=== PATIENT | male | born 1950 | race Caucasian/White ===

== ENCOUNTER 2020-10-19 09:05 | Outpatient (CLI) | payer MEDICARE, OTHER, SELFPAY ==
[2020-10-19 09:25] VITALS: BMI 27.6
--- NOTE | 2020-10-19 09:27 | ECG_ITS ---
[facility] Test Date: 2020-10-19 Pat Name: Braulio Jara Department: Room: Gender: Male Associate Brand Manager: : 1950 Requested By: Aliyah Canseco Order Number: [id number] Stephane MD: Aliyah Canseco M.D. Interpretive Statements NAME OF STUDY: LEXISCAN SESTAMIBI STRESS TEST INDICATION: Chest Pain PROCEDURE: At the baseline, the blood pressure was 125/75 mmHg, oxygen saturation 97% with a heart rate of 57 bpm. The electrocardiogram showed sinus bradycardia with short LA interval. Normal axis. Nonspecific ST depression and T wave inversion in lead III and aVF. The Lexiscan was infused over a period of 20 seconds. A total of 0.4 milligrams of Lexiscan was infused. The stress phase was continued for a total of 5 minutes. Heart rate at the end of the stress phase was 76 bpm, oxygen saturation 96% with a blood pressure of 129/71 mmHg. The EKG at the peak infusion revealed normal sinus rhythm with no significant ST-T wave changes. Sestamibi was injected 20 seconds after the Lexiscan infusion. Blood pressure at the end of the recovery phase was 124/72 mmHg, oxygen saturation 95% with a heart rate of 77 beats per minute. Isolated PVC noted in recovery. CONCLUSION: 1. No significant EKG changes with the LexiScan infusion. 2. No LexiScan induced chest pain or cardiac arrhythmia. 3. Normal blood pressure and heart rate response. 4. Sestamibi/sestamibi perfusion scan pending; see separate report. Electronically Signed On 10-20-2020 18:24:51 CDT by Aliyah Canseco M.D. [id number]
--- NOTE | 2020-10-19 09:28 | NMCV_ITS ---
NM sergey perf SPECT r/s* [id number] Braulio Jara Age: 69 Gender: M : 1950 Exam Date: 10/19/2020 09:28 Ordering Phys: Aliyah Canseco MD ([email or web address]) Technologist: KAUSHAL Arroyo Exam Location: [facility] Indications: CHEST PAIN STRESS TEST Please see separate stress test report in [facility] for full findings IMAGE PROTOCOL Rest/Stress 1 Lexiscan Day Radiopharmaceutical Dose (mCi) Administration Site Administered by Rest: Tc-99m 10.7 IV KAUSHAL Roque Stress:Tc-99m 32.5 IV KAUSHAL Roque Rest: 19-Oct-2020 60 Discovery 630 Stress: 19-Oct-2020 30 Discovery 630 0.4mg Lexiscan. Images obtained in supine and prone position. SPECT RESULTS Technical Quality: Excellent Raw Data Analysis: Normal Image Corrections: No attenuation or motion correction applied Summed Stress Score: 7 Summed Rest Score: 1 Summed Difference Score: 6 PERFUSION FINDINGS Small sized perfusion abnormality of moderate severity of mid to apical anterior and apical lateral kraus on rest images with reversibility noted in stress images. FUNCTIONAL RESULTS (calculated via Gated SPECT) Stress Image LV EF (%): 53 Stress EDV (mL):120 TID: 1.13 Stress ESV (mL):57 FUNCTIONAL FINDINGS: The left ventricle is normal in size. Transient Ischemia Dilatation of 1.1. There is normal left ventricular systolic function. The left ventricular ejection fraction is normal with a value of 53%. There is reduced left ventricular wall thickening in mid to apical anterior wall. IMPRESSIONS 1. Small sized partially reversible perfusion abnormality of moderate severity of mid to apical anterior and apical lateral kraus. 2. This is suggestive of myocardial infarction in left anterior descending artery territory with mild per-infarct ischemia. 3. The left ventricular ejection fraction is normal with a value of 53%. 4. There is reduced left ventricular wall thickening in mid to apical anterior wall. 5. EKG portion of the study will be reported separately. Aliyah Canseco MD (Electronically Signed) Final Date: 23 October 2020 12:02 S
[2020-10-19] MEDS: regadenoson 0.4 Mg/5 ml Syringe IVP (11:08)
[2020-10-19 11:28] VITALS: BP 118/75; PULSE 80
== END 2020-10-19 09:06 | disposition home or self-care (01) ==
LOC: CDL 09:07
PROVIDERS: PCP Student in an Organized Health Care Education/Training Program; Visit Provider Internal Medicine Cardiovascular Disease
DX: R07.9 Chest pain, unspecified (principal)
CPT/HCPCS: 78452; 93017; A9500; J2785

== ENCOUNTER → 2022-05-20 14:54 | Outpatient (BNVA) | payer MEDICARE, OTHER, SELFPAY | PROVIDERS: PCP Registered Nurse; Visit Provider Internal Medicine Cardiovascular Disease | DX: R07.9 Chest pain, unspecified (principal); I25.810 Atherosclerosis of coronary artery bypass graft(s) without angina pectoris; I10 Essential (primary) hypertension; E78.2 Mixed hyperlipidemia; E11.9 Type 2 diabetes mellitus without complications; Z79.84 Long term (current) use of oral hypoglycemic drugs; Z95.1 Presence of aortocoronary bypass graft; Z87.891 Personal history of nicotine dependence | CPT/HCPCS: 99214 ==

== ENCOUNTER → 2023-02-24 12:34 | Outpatient (BNVA) | payer MEDICARE, OTHER, SELFPAY | PROVIDERS: PCP Registered Nurse; Visit Provider Internal Medicine Cardiovascular Disease | DX: I25.10 Atherosclerotic heart disease of native coronary artery without angina pectoris (principal); E78.2 Mixed hyperlipidemia; R07.9 Chest pain, unspecified; I25.810 Atherosclerosis of coronary artery bypass graft(s) without angina pectoris; I10 Essential (primary) hypertension; E11.9 Type 2 diabetes mellitus without complications; Z87.891 Personal history of nicotine dependence; R94.31 Abnormal electrocardiogram [ECG] [EKG] | CPT/HCPCS: 93005; 99214 ==

== ENCOUNTER 2023-03-11 08:21 | Outpatient (CLI) | payer MEDICARE, OTHER, SELFPAY ==
[2023-03-11 09:02] LABS: Alanine Aminotransferase 33 U/L (0-41); Albumin Level 4.4 g/dL (3.5-5.2); Alkaline Phosphatase 49 U/L (40-130); Anion Gap 13.8 (5-19); Aspartate Amino Transferase 36 U/L (0-40); Blood Urea Nitrogen 16 mg/dL (8-23); Calcium 9.4 mg/dL (8.5-10.5); Carbon Dioxide 28 mmol/L (22-29); Chloride 100 mmol/L (98-107); Chol HDL Ratio 6.97 mg/dL (1.0-5.00); Cholesterol 237 mg/dL (0-200); Globulin 2.7 g/dL (1.3-4.6); Glucose 131 mg/dL (65-115); HDL Cholesterol 34 mg/dL (60-100); LDL Cholesterol Direct 118 mg/dL (0-100); Osmolality Calculated 289 mOsm/kg (285-295); Potassium 3.8 mmol/L (3.5-5.1); Sodium 138 mmol/L (136-145); Total Bilirubin 0.4 mg/dL (0.15-1.2); Total Protein 7.1 g/dL (6.6-8.7); Triglycerides 418 mg/dL (0-150)
== END 2023-03-11 08:22 | disposition home or self-care (01) ==
LOC: LAB 08:26
PROVIDERS: PCP Registered Nurse; Visit Provider Internal Medicine Cardiovascular Disease
DX: I25.10 Atherosclerotic heart disease of native coronary artery without angina pectoris (principal); E78.5 Hyperlipidemia, unspecified; E78.2 Mixed hyperlipidemia
CPT/HCPCS: 36415; 80053; 80061; 83721

== ENCOUNTER → 2023-11-25 15:41 | Outpatient (BNVA) | payer MEDICARE, OTHER, SELFPAY | PROVIDERS: PCP Registered Nurse; Visit Provider Nurse Practitioner Family | DX: I25.810 Atherosclerosis of coronary artery bypass graft(s) without angina pectoris (principal); I49.9 Cardiac arrhythmia, unspecified; R68.89 Other general symptoms and signs; I10 Essential (primary) hypertension | CPT/HCPCS: 93005; 99214 ==

== ENCOUNTER → 2023-12-03 06:15 | Outpatient (CLI) | payer MEDICARE, OTHER, SELFPAY ==
--- NOTE | 2023-12-03 06:30 | USCV_ITS ---
Estefani Braulio Age: 73 Gender: M : 1950 Exam Date: 12/03/2023 06:36 Ordering Phys: Orquidea Todd Technologist: JASSON Exam Location: [facility] [place] Indication: IRREGULAR HEART RATE BP: 124 / 78 HR: 68 Rhythm: Sinus Technical Quality: Adequate MEASUREMENTS (Male / Female) Normal Values 2D ECHO LV Diastolic Diameter PLAX 5.2 cm 4.2 - 5.9 / 3.9 - 5.3 cm IVS Diastolic Thickness 1.2 cm 0.6 - 1.0 / 0.6 - 0.9 cm IVS Systolic Thickness 1.7 cm LVPW Diastolic Thickness 1.7 cm 0.6 - 1.0 / 0.6 - 0.9 cm LVPW Systolic Thickness 2.3 cm LVOT Diameter 2.0 cm LV Ejection Fraction 2D Teich 62.1 % LV Ejection Fraction MOD 4C 48.6 % LV Ejection Fraction MOD 2C 55.6 % LV Ejection Fraction 2C AL 60.8 % LA Diameter 4.0 cm RA Systolic Volume 4C AL 40.0 ml RA Systolic Volume 4C MOD 38.1 ml LA Sys Volume AL 52.5 cm cubed LA Sys Volume Index AL 22.9 cm cubed/m squared Aorta at Sinotubular Diameter 2.8 cm IVC Diameter 1.9 cm M-MODE LA Ao Ratio MM 0.8 AV Cusp Separation MM 1.2 cm DOPPLER AV Peak Velocity 111.0 cm/s LVOT Peak Velocity 72.0 cm/s AV Area Cont Eq vti 2.3 cm squared AV Area Cont Eq pk 2.1 cm squared MV Peak Velocity 82.0 cm/s MV Area PHT 2.1 cm squared Mitral E to A Ratio 0.7 TR Peak Velocity 155.0 cm/s TR Peak Gradient 9.6 mmHg TR Mean Velocity 128.0 cm/s TR Mean Gradient 6.9 mmHg TR Velocity Time Integral 42.3 cm TV Peak E Velocity 31.0 cm/s Right Atrial Pressure 3.0 mmHg Pulmonary Artery Systolic Pressu 12.6 mmHg PV Peak Velocity 72.0 cm/s FINDINGS Left Ventricle Normal LV size with a slightly diminished ejection fraction of 49%. Moderate diffuse hypokinesia of the septum.Grade I/IV diastolic dysfunction (abnormal relaxation filling pattern), normal to mildly elevated filling pressures. Right Ventricle The right ventricle is normal in size and function. Right Atrium The right atrium is normal in size. Left Atrium The left atrium is normal in size. Mitral Valve Mild mitral annular calcification. Aortic Valve Thickened aortic valve. Tricuspid Valve Trace tricuspid valve regurgitation. Pulmonic Valve Pulmonic valve not well visualized. Pericardium Normal pericardium without effusion. Aorta Normal ascending aorta dimension. IVC The inferior vena cava appears normal. CONCLUSIONS Normal LV size with a slightly diminished ejection fraction of 49%. Moderate diffuse hypokinesia of the septum.Grade I/IV diastolic dysfunction (abnormal relaxation filling pattern), normal to mildly elevated filling pressures. Thickened aortic valve. Mild mitral annular calcification. Trace tricuspid valve regurgitation. Estimated pulmonary artery peak systolic pressure, possibly within normal limits There is no pericardial effusion. Compared to the study from 03/28/2017, there is significant improvement in the LV ejection fraction (from 40% to 49%) Dr Joseluis Bacon MD [facility] (Electronically Signed) Final Date: 04 December 2023 22:04 S
== END | disposition home or self-care (01) ==
LOC: RAD 06:14
PROVIDERS: PCP Registered Nurse; Visit Provider Nurse Practitioner Family
DX: I25.810 Atherosclerosis of coronary artery bypass graft(s) without angina pectoris (principal); I49.9 Cardiac arrhythmia, unspecified; R68.89 Other general symptoms and signs; I34.81 Nonrheumatic mitral (valve) annulus calcification; I35.8 Other nonrheumatic aortic valve disorders; I36.1 Nonrheumatic tricuspid (valve) insufficiency
CPT/HCPCS: 93306

== ENCOUNTER 2023-12-28 07:07 | Outpatient (CLI) | payer MEDICARE, OTHER, SELFPAY ==
--- NOTE | 2023-12-28 | ECG_ITS ---
[facility] Test Date: 2023-12-28 Pat Name: Braulio Jara Department: Room: Gender: Male Investigation Clerk: : 1950 Requested By: Orquidea Todd Order Number: [id number] Reading MD: Interpretive Statements Lung unchanged pre/post procedure; Intraprocedure shortess of breath; Symptoms resoled by discharge [id number]
--- NOTE | 2023-12-28 07:15 | NMCV_ITS ---
NM sergey perf SPECT r/s* [id number] Braulio Jara Age: 73 Gender: M : 1950 Exam Date: 12/28/2023 08:05 Ordering Phys: Orquidea Todd Technologist: KAUSHAL Roque Exam Location: [facility] Indications: Fatigue, hx of CABG STRESS TEST Please see separate stress test report in [facility] for full findings IMAGE PROTOCOL Rest/Stress 1 Lexiscan Day Radiopharmaceutical Dose (mCi) Administration Site Administered by Rest: Tc-99m 10.8 IV KAUSHAL Roque Sestamibi Stress:Tc-99m 32.9 IV KAUSHAL Roque Sestamibi Rest: 28-Dec-2023 60 Discovery 630 Stress: 28-Dec-2023 45 Discovery 630 0.4mg Lexiscan. Images obtained in supine and prone position. SPECT RESULTS Technical Quality: Good Raw Data Analysis: Normal Image Corrections: No attenuation or motion correction applied Summed Stress Score: 5 Summed Rest Score: 5 Summed Difference Score: 2 PERFUSION FINDINGS Medium sized areas of mostly fixed perfusion defect is seen in apical, apical anterior and apical lateral kraus. This is consistent with medium sized areas of prior infarct with minimal thomas-infarct ischemia in these territories. FUNCTIONAL RESULTS (calculated via Gated SPECT) Stress Image LV EF (%): 37 Stress EDV (mL):166 TID: 1.04 Stress ESV (mL):105 FUNCTIONAL FINDINGS: LV systolic function is moderately reduced with EF of 37%. IMPRESSIONS 1. Abnormal myocardial perfusion imaging with medium sized areas of prior infarct with minimal thomas-infarct ischemia seen in apical, apical anterior and apical lateral kraus. 2. LV systolic function is moderately reduced with EF of 37%. Rafita Prajapati MD (Electronically Signed) Final Date: 29 December 2023 17:46 S
[2023-12-28 07:26] VITALS: BMI 28.0
[2023-12-28] MEDS: regadenoson 0.4 Mg/5 ml Syringe IVP (08:46)
[2023-12-28 09:05] VITALS: BP 123/78; PULSE 87
== END 2023-12-28 07:08 | disposition home or self-care (01) ==
LOC: CDL 07:07
PROVIDERS: PCP Registered Nurse; Visit Provider Nurse Practitioner Family
DX: I25.810 Atherosclerosis of coronary artery bypass graft(s) without angina pectoris (principal); I49.9 Cardiac arrhythmia, unspecified; R94.39 Abnormal result of other cardiovascular function study
CPT/HCPCS: 36415; 78452; 93017; 96374; A9500; J2785

== ENCOUNTER 2024-01-11 10:43 | Outpatient (CLI) | payer MEDICARE, OTHER, SELFPAY ==
[2024-01-11 11:19] LABS: Basophils # 0.1 10^3/uL (0.0-0.1); Basophils % 0.8 %; Eosinophils # 0.4 10^3/uL (0.0-0.8); Eosinophils % 5.2 %; Hematocrit 41.3 % (37-53); Lymphocytes # 1.2 10^3/uL (0.8-4.8); Lymphocytes % 16.1 %; Mean Corpuscular HGB Conc 34.4 g/dL (30-55); Mean Corpuscular Hemoglobin 31.6 pg (27-33); Mean Corpuscular Volume 91.8 fl (82-101); Mean Platelet Volume 9.3 fL (7.4-10.4); Monocytes # 0.7 10^3/uL (0.2-0.9); Monocytes % 9.1 %; Neutrophils # 5.09 10^3/uL (1.8-7.7); Neutrophils % 68.5 %; Nucleated Red Blood Cells % 0 %; Platelet Count 209 10^3/cmm (157-399); Red Cell Distribution Width 13.1 % (12.1-15.1); White Blood Count 7.44 10^3/uL (3.29-11.43)
[2024-01-11 11:33] LABS: INR 0.98 (0.83-1.21); Prothrombin Time (Patient) 13.3 Seconds (12.0-15.1)
[2024-01-11 11:48] LABS: Anion Gap 15.1 (5-19); Blood Urea Nitrogen 12 mg/dL (8-23); Carbon Dioxide 27 mmol/L (22-29); Chloride 101 mmol/L (98-107); Glucose 159 mg/dL (65-115); NT Pro B Type Natriuretic Pept 141 pg/mL (0-125); Osmolality Calculated 291 mOsm/kg (285-295); Potassium 4.1 mmol/L (3.5-5.1); Sodium 139 mmol/L (136-145)
== END 2024-01-11 10:44 | disposition home or self-care (01) ==
LOC: LAB 10:45
PROVIDERS: Nurse Practitioner Family; PCP Registered Nurse; Visit Provider Internal Medicine Cardiovascular Disease
DX: I10 Essential (primary) hypertension (principal); I25.810 Atherosclerosis of coronary artery bypass graft(s) without angina pectoris
CPT/HCPCS: 36415; 80048; 83880; 85025; 85610; 86850; 86900

== ENCOUNTER 2024-01-13 05:59 | Outpatient (CLI) | payer MEDICARE, OTHER, SELFPAY ==
[2024-01-12 08:32] VITALS: BP 117/71; PULSE 67; RESP 14; O2SAT 95
[2024-01-13] VITALS (7 sets, daily range): BP systolic 117–152; BP diastolic 71–87; PULSE 67–78; RESP 14–16; TEMP 36.7–36.9; O2SAT 95–97; BMI 28.0
--- NOTE | 2024-01-13 06:00 | XACV_ITS ---
Exam Room: 2 Ht: 188 cm Wt: 99 kg BSA: 2.29 m2 Gender: Male : 1950 Any Known Allergies: No known allergies Exam Priority: Routine Procedure(s): Procedure Description: Diagnostic procedure Procedure Description: Left Heart Catheterization Procedure Description: Left ventriculography Procedure Description: Venous Graft Catheterization Procedure Description: COLBERT Graft Catheterization Procedure Description: Coronary Angiography Jordi HER; Diagnostic Cath Status: Elective Diagnostic Findings * Left main is a medium caliber vessel with mild diffuse disease. * The left hand descending artery appears to be flush occluded proximally. * The left circumflex artery was found to have mild disease proximally. It gives of a high OM branch of relatively small caliber with a moderate to severe diffuse disease. The second obtuse marginal artery appears to be totally occluded. The AV groove branch was found to have mild diffuse disease. * The right coronary artery was found to have moderate to severe diffuse irregular lesions in the proximal to mid segment. The PDA branch was found to be totally occluded. The PLV branch was found to have severe diffuse disease in the mid to distal segment.. * The venous graft to the second obtuse marginal artery was found to be patent with no significant stenotic lesions. * The venous graft to the diagonal branch was found to be patent with no significant stenotic lesions. * The venous graft to the PDA was found to be patent with no significant lesions. * The venous graft to the PLV branch was found to be patent with no significant lesions. Conclusions 1. 73-year-old white male with history of 5 vessel coronary bypass surgery, percent of increasing shortness of breath with exertion and easy fatigability. Abnormal Myocardial perfusion imaging. Underwent a left heart catheterization with left and right coronary angiogram and graft angiogram today. The findings are as follows. 2. 1. Mild disease in the left main.2. 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 Moderate to severe diffuse disease in the relatively small caliber first obtuse marginal branch. Total occlusion of the second obtuse marginal artery.4. Moderate to severe diffuse disease in the proximal to mid RCA. Total occlusion of the PDA branch. Severe diffuse disease in the proximal to mid segments of the PLV branch of the right coronary artery.5. Patent COLBERT to the LAD, venous grafts to the diagonal, obtuse marginal, PLV branch of the right coronary artery and the PDA o branch f the right coronary artery6. LV ejection fraction of 45 to 50%. LVEDP of 8 mmHg.. Diagnostic RX Recommendation: medical therapy and/or counseling LV EDP: 8 mmHg Ventriculography Ejection Fraction: 45.0 % Left Ventriculography Findings: * The LV gram was performed in the LEBLANC projection. The LV gram was of suboptimal quality because of the poor filling. LV cavity appears to be of normal size. LVEDP was 8 mmHg. The LV ejection fraction was around 45 to 50%. Pressures Phase:Rest AO : 108 / 78 ( 94 ) @ 8:40:00 AM 92 / 51 ( 77 ) @ 8:42:00 AM 93 / 69 ( 82 ) @ 8:44:00 AM 115 / 58 ( 84 ) @ 9:15:00 AM 114 / 56 ( 81 ) @ 9:15:00 AM LV : 122 / -13 / 9 @ 9:13:00 AM 111 / -9 / 8 @ 9:15:00 AM 112 / -9 / 8 @ 9:15:00 AM Valves Phase:DefaultPhase AV : 0.0 @ 8:27:39 AM AV Mean Gradient: 0.0 @ 8:27:39 AM Clinical Evaluation EBL: 5mL-10mL Procedural Details Procedure Consent Obtained. Current Diagnosis : Chest Pain. Pre-Procedure Time Out. Identified patient by full name and date of as verbalized by the patient/guarantor. Does the consent match the physician's order: Yes. Accurate & Complete Informed Consent: Yes. Inpatient/Outpatient History & Physical on Chart: Yes. If H&P is completed, is and addenduem needed: No; If yes, is the addendum complete: N/A. Visualize and Verify Site with Patient/Guarantor: N/A. Relevant Radiology Images available: Yes. Pre-op teaching completed and patient verbalized understanding. The risks, benefits, and alternatives of sedation and/or procedure were discussed by physician. The patient agrees to continue. Procedure started. Physician arrived. [facility] Clinical Fraility Score: 3: Managing Well. Teacher Specialist Indications: Other. Chest Pain Symptom Assessment: Typical Angina Symptoms. Correct patient, site and procedure confirmed by cath team. Current diagnosis: Chest Pain. PERRLA. Strong, equal hand chief lending officer bilaterally. Lungs clear x 5 lobes. IV Site on Arrival: 20 gauge in the left anticubital. IV Fluids: 0.9% NaCl at KVO. 0 mL infused prior to foundry laborer coreroom. Pre Procedural Pulses: right dorsalis pedis was 3+. Pre Procedural Pulses: left dorsalis pedis was Doppled. Pre Procedural Pulses: bilateral posterior tibial was Doppled. Pre Procedural Pulses: bilateral radial was 3+. Oxygen started at 2liters/min via nasal canula. bilateral groins was prepped with chloroprep then draped in the usual sterile fashion. Baseline sample Acquired. HR: 74 BPM. Physician scrubbed in. Immediate Pre-Procedure Time Out. Correct Patient: Yes; Correct Procedure: Yes; Correct Site: Yes; Correct Patient Position: Yes; Correct Supplies: Yes; Dried Flammable Prep: Yes; Blood Products Available: N/A;. Lidocaine 1% infiltrated to the right groin. Arterial access obtained with micropuncture set. A 5 gibraltarian JL4 catheter in over wire. Catheter removed over the standard wire. A 5 gibraltarian JL4.5 catheter in over wire. Multiple views taken of left coronary artery. Catheter removed over the standard wire. A 5 gibraltarian JR4 catheter in over wire. Multiple views taken of right coronary artery. SVG's to OM visualized and patent. COLBERT to LAD visualized. Catheter removed over the exchange wire. A 5 gibraltarian IM catheter in over wire. COLBERT to LAD visualized. Catheter removed over the exchange wire. A 5 gibraltarian LCB catheter in over wire. SVG's to Diaganol visualized and patent. Catheter removed over the standard wire. A 5 gibraltarian RCB catheter in over wire. SVG's to PLV visualized and patent. SVG's to PDA visualized and patent. Catheter removed over the standard wire. Dr. Prajapati called to review films. A 5 gibraltarian Angled Pig catheter in over wire. EDP Sample taken: LV 122/-14,9; HR: 72 BPM; SpO2: 100%. LV gram performed in LEBLANC @ 10 mL/second for a total of 30 mL. EDP Sample taken: LV 111/-10,8; HR: 70 BPM; SpO2: 100%. Pullback taken: LV 112/-10,8; AO 115/58(84); Mean: 0mmHg, Peak to Peak: 0mmHg, SEP: 7sec/min; HR: 71 BPM; SpO2: 100%. Catheter removed over the standard wire. Physician scrubbed out. Dr. Prajapait arrived. Physician review of cine films. Vital chart was stopped. A Suture was successful obtaining hemostatsis at the Right Femoral artery insertion site. Sheath(s) sutured into position with 2-0 silk and sterile 4x4's and Op-site applied over the site. No oozing or signs and symptoms of hematoma noted. Arterial sheath flushed and connected to tranducer and pressure bag with heparinized saline. Post Procedure: Pulses reassessed and unchanged. PERRLA. Strong, equal hand chief lending officer bilaterally. No VTE prophylaxis required. Medication's Wasted: Lidocaine 1% = 10 mL. Medication's Wasted: Heparin = 4500 units. Medication's Wasted: Other = Fentanyl 25mcg Versed 1 mg. Total IV fluids: 100 mL. Complications: None. Estimated blood loss: 5mL-10mL. Responsiveness - Normal response to verbal stimuli; alert and oriented, PERRLA. Airway - Unaffected, no intervention required; spontaneous ventilation. Circulation: W/N/L, pulses unchanged. Nausea/Vomiting: No. Procedure completed. Patient transferred by bed to ICU. Access Site Site: Right Femoral artery Sheath Size: 6 Fr Hemostasis Method: Suture Hemostasis Success: Successful Procedure Medications Start: 7:22 AM Stop: 7:22 AM Medication: Versed Amount: 1 mg Route: I.V. Start: 7:23 AM Stop: 7:23 AM Medication: Fentanyl Amount: 50 mcg Route: I.V. Start: 7:35 AM Stop: 7:35 AM Medication: Versed Amount: 1 mg Route: I.V. Start: 7:39 AM Stop: 7:39 AM Medication: Heparin Amount: 1500 units Route: I.V. Start: 8:00 AM Stop: 8:00 AM Medication: Fentanyl Amount: 25 mcg Route: I.V. Start: 8:12 AM Stop: 8:12 AM Medication: Versed Amount: 1 mg Route: I.V. I, the attending physician, have reviewed and verified all procedure medications. Yes, all medications given per verbal order History/Risk Factors Hypertension: Yes Dyslipidemia: Yes Peripheral Arterial Disease (PAD): No Myocardial Infarction (VT): No Obesity: No Renal Disease: No Tobacco Use: Former Prior Interventions PCI: No CABG: Yes Valve Surgery: No Report Signatures Finalized by Dr Joseluis Bacon MD [facility] on 01/14/2024 09:27 AM
[2024-01-13] MEDS: diphenhydrAMINE 50 mg Capsule PO (06:20)
[2024-01-13 06:32] LABS: Glucose Point of Care 236 mg/dL (70-110)
--- NOTE | 2024-01-13 07:18 | PM.HP ---
Providers/Chief Complaint Admitting Physician: Dr. ESTEFANIA Bacon Primary Care Provider: HIREN Downs Chief Complaint: I25.810, R94.39 History of Present Illness Braulio Jara is a 73 year old male with a history of coronary disease, status post 5 vessel coronary bypass surgery, is presenting with complaints of shortness of breath, easy fatigability. He had a myocardial perfusion imaging which was found to be slightly abnormal. Because of the ongoing worsening of symptoms, in order to further evaluate the coronary status as well as the graft status, a cardiac catheterization was recommended. Patient is known to have high blood pressure, dyslipidemia, type 2 diabetes. Review of Systems Narrative: CONSTITUTIONAL: No fever chills weight loss or gain or night sweats. Easy fatigability and dyspnea on exertion HEENT: Normocephalic, atraumatic. RESPIRATORY: No cough, sputum, hemoptysis or wheezing. CARDIOVASCULAR: No shortness of breath, chest pain, PND, orthopnea, lower extremity edema, presyncope or syncope. GI: no nausea vomiting diarrhea. [employer]: No numbness, tingling, weakness or loss of function in any part of the body. MUSCULOSKELETAL: No knee or joint pain or rashes. Medications/Allergies Home Medications Medication Instructions Recorded Confirmed Last Taken Type aspirin 81 mg tablet,delayed 81 mg PO DAILY 09/21/19 01/12/24 01/13/24 05:15 History release (Aspir-) cholecalciferol (vitamin D3) 25 50 mcg PO DAILY 09/21/19 01/12/24 01/13/24 05:15 History mcg (1,000 unit) capsule multivitamin,lm-ihtp-fkxyckzu 1 tab PO DAILY 09/21/19 01/12/24 01/13/24 05:15 History (Complete Multivitamin tablet) esomeprazole magnesium 40 mg 40 mg PO DAILY 09/17/20 01/12/24 01/13/24 05:15 History capsule,delayed release (Nexium) lactobacillus combination no.9 4 4,000 mmu cells PO DAILY 09/17/20 01/12/24 01/13/24 05:15 History billion cell capsule (Adult 50 Plus Probiotic) metformin 1,000 mg tablet 1,000 mg PO BID 09/17/20 01/12/24 01/12/24 History nitroglycerin 0.4 mg sublingual 0.4 mg sublingual Q5M PRN chest 09/17/20 01/12/24 Unknown Rx tablet pain #30 tabs vit A 300 mcg-C 200 mg-E 27 1 tab PO DAILY 09/17/20 01/12/24 01/13/24 05:15 History mg-lutein 2 mg and minerals tablet (Vision Formula (with lutein)) metoprolol tartrate 50 mg tablet 25 mg (1/2 x 50 mg) PO BID #30 tabs 10/08/21 01/12/24 01/13/24 05:15 Rx hydrochlorothiazide 25 mg tablet 50 mg (2 x 25 mg) PO DAILY #60 tabs 04/03/22 01/12/24 01/13/24 05:15 Rx lisinopril 10 mg tablet 10 mg PO BID #180 tabs 09/19/22 01/12/24 01/13/24 05:15 Rx atorvastatin 80 mg tablet 80 mg PO DAILY #90 tabs 09/22/22 01/12/24 01/13/24 05:15 Rx tadalafil 5 mg tablet 5 mg PO DAILY 02/24/23 01/12/24 Unknown History gabapentin 300 mg capsule 300 mg PO TID 11/25/23 01/12/24 01/13/24 05:15 History tamsulosin 0.4 mg capsule 0.4 mg PO DAILY 11/25/23 01/12/24 01/13/24 05:15 History alirocumab 75 mg/mL subcutaneous 75 mg SUBCUT Q14D #75 mL 12/16/23 01/12/24 Unknown Rx pen injector (Praluent Pen) coenzyme Q10 100 mg capsule 200 mg PO DAILY 01/12/24 01/12/24 01/13/24 05:15 History (CoQ-10) dulaglutide 1.5 mg/0.5 mL 0.5 mg SUBCUT DIRECTED 01/12/24 01/12/24 01/12/24 History subcutaneous pen injector (Trulicity) omega-3 fatty acids 2,000 mg PO DAILY 01/12/24 01/12/24 01/13/24 05:15 History Allergies Allergy/AdvReac Type Severity Reaction Status Date / Time No Known Allergies Allergy Verified 01/13/24 06:47 PFSH Acute PFSH: Medical History Diabetes mellitus Postoperative atrial fibrillation Ulnar neuropathy at elbow of right upper extremity CAD (coronary atherosclerotic disease) Ulnar neuropathy Hyperlipidemia HTN (hypertension) Surgical History Hx of CABG Family History Other CAD (coronary artery disease) Diabetes Emphysema of lung Hypertension Social History Smoking and tobacco/nicotine status: former use of tobacco/nicotine Quit status (tobacco/nicotine): has quit using Year quit tobacco: 1984 Alcohol intake: current Alcohol intake frequency: holidays/special occasions only Substance/Drug Use: never Vitals/I&O/Wt Last Vital Signs Temp 98.5 F 01/13/24 06:40 Pulse 78 01/13/24 06:40 Resp 16 01/13/24 06:40 BP 152/87 01/13/24 06:40 O2 Del Method Room Air 01/13/24 06:40 Weight last 48 hrs Weight 218 lb Physical Exam Narrative: GENERAL: The patient is alert and oriented times three. Not in any acute distress. [] HEENT: No significant pallor, icterus or lymphadenopathy.Oral cavity: There are no mucous membrane lesions. NECK: Trachea appears to be central. No masses noted. No JVD or thyromegaly appreciated. RESPIRATORY: Chest is symmetrical. No intercostals muscle retraction or any accessory muscle activation. There is no chest wall tenderness. Breath sounds are heard bilaterally. No rales or rhonchi heard. No evidence of any consolidation. [] BREASTS: Deferred. HEART: The heart sounds are normal. No S3 or S4. No significant murmurs. No pericardial rub ABDOMEN: No vessel pulsations or distention. No tenderness. No organomegaly appreciated. Bowel sounds are normally heard. : Deferred. RECTAL: Deferred. LYMPHATIC: No lymphadenopathy noted in the neck. EXTREMITIES: No edema or cyanosis. No clubbing. MUSCULOSKELETAL: No acute joint deformities or swelling SKIN: There are no significant rashes or ecchymosis NEUROPSYCHIATRIC: The patient is alert and oriented x3. Appears to be in a good mood. No tremors or rigidity noted. A&P Assessment and plan (1) Atherosclerotic heart disease of [place] coronary artery with other forms of angina pectoris: Patient had a 5 vessel bypass surgery in 2017, COLBERT to the LAD, SVGs to diagonal, obtuse marginal, PDA and PLV (2) HTN (hypertension): Currently stable Qualifiers: Hypertension type: primary hypertension Qualified Code(s): I10 - Essential (primary) hypertension (3) Hyperlipidemia: Will continue on the current medications Qualifiers: Hyperlipidemia type: mixed hyperlipidemia Qualified Code(s): E78.2 - Mixed hyperlipidemia (4) Diabetes mellitus: Qualifiers: Diabetes mellitus type: type 2 Diabetes mellitus complication status: without complication Diabetes mellitus long-term insulin use: without long line teamster use Qualified Code(s): E11.9 - Type 2 diabetes mellitus without complications Plan In view of the patient's ongoing symptoms, it would be appropriate to go ahead with an angiogram to decide on the coronary status as well as the graft status. The risk of bleeding, hematoma, vascular injury, myocardial infarction, myocardial perforation, malignant cardiac arrhythmias ,CVA, renal failure and other concomitant complications were explained in detail. Patient understood this well and consented to proceed. He also understands that if he needed any surgical intervention, he may need to be transferred to another facility. Attestations Medical Necessity Statement*: Patient may require overnight stay Coding Level of Care Code 64619 Diagnoses Atherosclerotic heart disease of [place] coronary artery with other forms of angina pectoris I25.118 Primary hypertension I10 Hypertension type: primary hypertension Mixed hyperlipidemia E78.2 Hyperlipidemia type: mixed hyperlipidemia Type 2 diabetes mellitus without complication, without long-term current use of insulin E11.9 Diabetes mellitus type: type 2 Diabetes mellitus complication status: without complication Diabetes mellitus long line teamster insulin use: without long-term use
--- NOTE | 2024-01-13 07:28 | W.PM.OPSUD ---
Surgery/Procedure H&P Update DATE OF PROCEDURE: January 13, 2024 DATE H&P PERFORMED: 01/13/24 H&P UPDATE INFORMATION: I have reviewed H&P completed within last 30 days, I have examined patient prior to procedure and No changes to prior documentation PREOP DIAGNOSIS: ASHD PRIMARY INDICATION FOR PROCEDURE: Shortness of breath, easy fatigability and abnormal Myocardial perfusion imaging. Cardiomyopathy. PLANNED PROCEDURE: Operation Date: 01/13/24 07:00 Proposed Procedures p Cardiac Catheterization - [facility](Left) - Joseluis Bacon MD PATIENT REASSESSED PRIOR TO SEDATION, WITH NO CHANGE NOTED: Yes PHYSICAL EXAM: alert, oriented x 3, clear to auscultation bilaterally and regular rate & rhythm AIRWAY EVAL/ANESTHESIA PLAN: normal airway, see other exam findings, ASA III, Monitored Anesthesia, Local Anesthesia, Risks, benefits & alternatives of sedation and/or procedure discussed and Patient agrees to continue as planned
[2024-01-13] MEDS: sodium chloride 0.9% 1,000 ML 100 ML IV (08:30)
--- NOTE | 2024-01-13 09:14 | PC.NURSE ---
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
[2024-01-13 11:02] LABS: Partial Thromboplastin Time 29.7 SECONDS (23.9-36.7)
--- NOTE | 2024-01-13 12:13 | PC.NURSE ---
Patient has a right femoral sheath from radiographer cardiac catheterization. PTT returned at 29.7 is sheath can be removed. Sheath is pulled at 1125 and hemastasis is obtained at 1128. Manual pressure is held x 25 minutes. A dressing of a 4 x 4 and tegaderm is applied. Patient tolerated well.
--- NOTE | 2024-01-13 16:14 | PC.NURSE ---
Patient has gabapentin due on the JUL for 1500. He states that he takes his gabapentin in the morning, at dinner, and right before bed. He also takes his lisinopril and metoprolol at bedtime. Patient and would like to keep his medications as close to his home schedule as possible.
== END 2024-01-13 18:04 | disposition home or self-care (01) ==
LOC: CCL 06:03 → ICU 09:05
PROVIDERS: PCP Registered Nurse; Visit Provider Internal Medicine Cardiovascular Disease
DX: I25.118 Atherosclerotic heart disease of native coronary artery with other forms of angina pectoris (principal); I25.82 Chronic total occlusion of coronary artery; I10 Essential (primary) hypertension; E78.2 Mixed hyperlipidemia; E11.9 Type 2 diabetes mellitus without complications; Z79.01 Long term (current) use of anticoagulants; Z87.891 Personal history of nicotine dependence; Z95.1 Presence of aortocoronary bypass graft; Z79.82 Long term (current) use of aspirin
CPT/HCPCS: 36415; 36416; 82962; 85730; 93459; 96374; 96375; 99152; 99153; C1769; C1887; C1894; J1644; J2250; J3010; J7030; Q0163; Q9967

== ENCOUNTER → 2024-01-21 13:50 | Outpatient (BNVA) | payer MEDICARE, OTHER, SELFPAY | PROVIDERS: PCP Registered Nurse; Visit Provider Nurse Practitioner Family | DX: I25.810 Atherosclerosis of coronary artery bypass graft(s) without angina pectoris (principal); I50.20 Unspecified systolic (congestive) heart failure; Z87.891 Personal history of nicotine dependence | CPT/HCPCS: 80048; 83880; 99214 ==

== ENCOUNTER → 2024-04-20 11:53 | Outpatient (BNVA) | payer MEDICARE, OTHER, SELFPAY | PROVIDERS: PCP Registered Nurse; Visit Provider Internal Medicine Cardiovascular Disease | DX: R06.02 Shortness of breath (principal); I25.118 Atherosclerotic heart disease of native coronary artery with other forms of angina pectoris; R53.82 Chronic fatigue, unspecified; I50.20 Unspecified systolic (congestive) heart failure; I11.0 Hypertensive heart disease with heart failure; E78.2 Mixed hyperlipidemia; E11.9 Type 2 diabetes mellitus without complications | CPT/HCPCS: 36415; 80048; 83880; 99214 ==

== ENCOUNTER → 2024-05-13 10:08 | Outpatient (BNVA) | payer MEDICARE, OTHER, SELFPAY | PROVIDERS: PCP Registered Nurse; Visit Provider Nurse Practitioner Family | DX: I11.0 Hypertensive heart disease with heart failure (principal); I50.20 Unspecified systolic (congestive) heart failure; I25.10 Atherosclerotic heart disease of native coronary artery without angina pectoris; E78.5 Hyperlipidemia, unspecified; E11.9 Type 2 diabetes mellitus without complications; Z79.84 Long term (current) use of oral hypoglycemic drugs | CPT/HCPCS: 99214 ==

== ENCOUNTER → 2024-07-12 09:11 | Outpatient (BNVA) | payer MEDICARE, OTHER, SELFPAY | PROVIDERS: PCP Registered Nurse; Referring Provider Registered Nurse; Visit Provider Internal Medicine | DX: E11.9 Type 2 diabetes mellitus without complications (principal); E78.2 Mixed hyperlipidemia; I25.810 Atherosclerosis of coronary artery bypass graft(s) without angina pectoris; Z95.1 Presence of aortocoronary bypass graft | CPT/HCPCS: 99205 ==

== ENCOUNTER 2024-09-30 09:04 | Outpatient (CLI) | payer MEDICARE, OTHER, SELFPAY ==
[2024-09-30 09:43] LABS: Estmated Average Glucose 151; Hemoglobin A1C 6.9 % (4.0-6.0)
[2024-09-30 09:50] LABS: Alanine Aminotransferase 26 U/L (0-41); Albumin Level 4.4 g/dL (3.5-5.2); Alkaline Phosphatase 54 U/L (40-130); Anion Gap 14.3 (5-19); Aspartate Amino Transferase 23 U/L (0-40); Blood Urea Nitrogen 12 mg/dL (8-23); Calcium 9.6 mg/dL (8.5-10.5); Carbon Dioxide 28 mmol/L (22-29); Chloride 102 mmol/L (98-107); Cholesterol 80 mg/dL (0-200); Globulin 2.9 g/dL (1.3-4.6); Glucose 146 mg/dL (65-115); HDL Cholesterol 47 mg/dL (60-100); LDL Cholesterol Calculated 18 mg/dL (50-129); LDL HDL Ratio 0.38 RATIO (0.00-3.22); Osmolality Calculated 292 mOsm/kg (285-295); Potassium 4.3 mmol/L (3.5-5.1); Sodium 140 mmol/L (136-145); Total Protein 7.3 g/dL (6.6-8.7); Triglycerides 74 mg/dL (0-150)
[2024-09-30 09:59] LABS: Creatinine Urine, Random 101 mg/dL (39-259); Microalbum Creatinine Ratio Ur 20 mg/dL (0-20); Microalbumin Random Urine 2 ug/dL (0-20)
== END 2024-09-30 09:05 | disposition home or self-care (01) ==
LOC: LAB 09:07
PROVIDERS: PCP Registered Nurse; Visit Provider Internal Medicine
DX: E11.9 Type 2 diabetes mellitus without complications (principal)
CPT/HCPCS: 36415; 80053; 80061; 82044; 83036

== ENCOUNTER → 2024-10-12 09:43 | Outpatient (BNVA) | payer MEDICARE, OTHER, SELFPAY | PROVIDERS: PCP Registered Nurse; Referring Provider Registered Nurse; Visit Provider Internal Medicine | DX: E11.9 Type 2 diabetes mellitus without complications (principal); E78.2 Mixed hyperlipidemia | CPT/HCPCS: 99214 ==

== ENCOUNTER → 2024-11-02 13:54 | Outpatient (BNVA) | payer MEDICARE, OTHER, SELFPAY | PROVIDERS: PCP Registered Nurse; Visit Provider Internal Medicine Cardiovascular Disease | DX: I25.10 Atherosclerotic heart disease of native coronary artery without angina pectoris (principal); I11.0 Hypertensive heart disease with heart failure; I50.20 Unspecified systolic (congestive) heart failure; E78.2 Mixed hyperlipidemia; E11.9 Type 2 diabetes mellitus without complications; Z79.84 Long term (current) use of oral hypoglycemic drugs; Z95.1 Presence of aortocoronary bypass graft; Z79.82 Long term (current) use of aspirin; Z87.891 Personal history of nicotine dependence | CPT/HCPCS: 99214 ==

== ENCOUNTER → 2025-01-09 09:41 | Outpatient (BNVA) | payer MEDICARE, OTHER, SELFPAY | PROVIDERS: PCP Registered Nurse; Visit Provider Dermatology | DX: L71.8 Other rosacea (principal); L82.1 Other seborrheic keratosis; D18.01 Hemangioma of skin and subcutaneous tissue; L81.8 Other specified disorders of pigmentation; D48.5 Neoplasm of uncertain behavior of skin; L57.0 Actinic keratosis | CPT/HCPCS: 11102; 17000; 99204 ==

== ENCOUNTER → 2025-01-26 13:03 | Outpatient (BNVA) | payer MEDICARE, OTHER, SELFPAY | PROVIDERS: PCP Registered Nurse; Visit Provider Dermatology | DX: D22.5 Melanocytic nevi of trunk (principal) | CPT/HCPCS: 11602; 12032 ==

== ENCOUNTER 2025-04-04 08:30 | Outpatient (CLI) | payer MEDICARE, OTHER, SELFPAY ==
[2025-04-04 09:52] LABS: Creatinine Urine, Random 106 mg/dL (39-259); Microalbum Creatinine Ratio Ur 38 mg/dL (0-20)
[2025-04-04 09:54] LABS: Alanine Aminotransferase 30 U/L (0-41); Albumin Level 4.5 g/dL (3.5-5.2); Alkaline Phosphatase 55 U/L (40-130); Anion Gap 12.1 (5-19); Aspartate Amino Transferase 25 U/L (0-40); Blood Urea Nitrogen 12 mg/dL (8-23); Calcium 9.6 mg/dL (8.5-10.5); Carbon Dioxide 30 mmol/L (22-29); Chloride 100 mmol/L (98-107); Cholesterol 84 mg/dL (0-200); Globulin 3.1 g/dL (1.3-4.6); Glucose 138 mg/dL (65-115); HDL Cholesterol 48 mg/dL (60-100); Osmolality Calculated 288 mOsm/kg (285-295); Potassium 4.1 mmol/L (3.5-5.1); Sodium 138 mmol/L (136-145); Total Protein 7.6 g/dL (6.6-8.7); Triglycerides 66 mg/dL (0-150)
[2025-04-04 09:56] LABS: Estmated Average Glucose 151; Hemoglobin A1C 6.9 % (4.0-6.0)
== END 2025-04-04 08:31 | disposition home or self-care (01) ==
PROVIDERS: PCP Registered Nurse; Visit Provider Internal Medicine
DX: E78.2 Mixed hyperlipidemia (principal); Z95.1 Presence of aortocoronary bypass graft; E11.9 Type 2 diabetes mellitus without complications; I25.810 Atherosclerosis of coronary artery bypass graft(s) without angina pectoris
CPT/HCPCS: 36415; 80053; 80061; 82044; 83036

== ENCOUNTER → 2025-05-05 11:07 | Outpatient (BNVA) | payer MEDICARE, OTHER, SELFPAY | PROVIDERS: PCP Registered Nurse; Visit Provider Nurse Practitioner Family | DX: I25.10 Atherosclerotic heart disease of native coronary artery without angina pectoris (principal); Z95.1 Presence of aortocoronary bypass graft; E78.5 Hyperlipidemia, unspecified; I10 Essential (primary) hypertension; Z87.891 Personal history of nicotine dependence; R07.89 Other chest pain | CPT/HCPCS: 99214 ==

== ENCOUNTER → 2025-05-09 08:17 | Outpatient (BNVA) | payer MEDICARE, OTHER, SELFPAY | PROVIDERS: PCP Registered Nurse; Visit Provider Nurse Practitioner Family | DX: D18.01 Hemangioma of skin and subcutaneous tissue (principal); L82.1 Other seborrheic keratosis; L81.4 Other melanin hyperpigmentation; L57.8 Other skin changes due to chronic exposure to nonionizing radiation; Z87.2 Personal history of diseases of the skin and subcutaneous tissue | CPT/HCPCS: 99213 ==

== ENCOUNTER → 2025-05-09 13:20 | Outpatient (BNVA) | payer MEDICARE, OTHER, SELFPAY | PROVIDERS: PCP Registered Nurse; Referring Provider Registered Nurse; Visit Provider Internal Medicine Endocrinology, Diabetes & Metabolism | DX: E11.9 Type 2 diabetes mellitus without complications (principal); E78.2 Mixed hyperlipidemia; I25.810 Atherosclerosis of coronary artery bypass graft(s) without angina pectoris; Z95.1 Presence of aortocoronary bypass graft | CPT/HCPCS: 99213 ==